=== PATIENT | male | born 1985 | race African-American/Black ===

== ENCOUNTER 2021-07-24 04:04 | Emergency (ER) | payer OTHER ==
[2021-07-24] MEDS ORDERED: AMOX TR-K CLV1 EAC4 PO (05:28)
== END 2021-07-24 05:35 | disposition home or self-care (01) ==
LOC: FER 04:04
DX: K08.89 Other specified disorders of teeth and supporting structures (principal); F17.200 Nicotine dependence, unspecified, uncomplicated; Z28.310 Unvaccinated for COVID-19
CPT/HCPCS: 99282; J1885; Q0163